=== PATIENT | female | born 1950 | race Caucasian/White ===

== ENCOUNTER → 2023-04-13 06:37 | Outpatient (REF) | payer MEDICARE, OTHER, SELFPAY | LOC: MRI 06:37 | PROVIDERS: ATTENDING PHYSICIAN Internal Medicine | DX: M25.552 Pain in left hip (principal) | CPT/HCPCS: 73721 ==

== ENCOUNTER → 2023-04-28 13:18 | Outpatient (REF) | payer MEDICARE, OTHER, SELFPAY | LOC: RCS 13:18 | PROVIDERS: ATTENDING PHYSICIAN Internal Medicine Cardiovascular Disease; FAMILY PHYSICIAN Internal Medicine | DX: R00.2 Palpitations (principal); Z82.49 Family history of ischemic heart disease and other diseases of the circulatory system; R03.0 Elevated blood-pressure reading, without diagnosis of hypertension; I35.1 Nonrheumatic aortic (valve) insufficiency; R07.89 Other chest pain | CPT/HCPCS: 93017 ==

== ENCOUNTER → 2023-05-31 13:17 | Outpatient (REF) | payer MEDICARE, OTHER, SELFPAY | LOC: MRI 3T 13:17 | PROVIDERS: ATTENDING PHYSICIAN Student in an Organized Health Care Education/Training Program; FAMILY PHYSICIAN Internal Medicine | DX: M54.6 Pain in thoracic spine (principal); M54.50 Low back pain, unspecified | CPT/HCPCS: 72148 ==

== ENCOUNTER 2023-10-06 22:45 | Emergency (ER) | payer MEDICARE, OTHER, SELFPAY ==
[2023-10-06 22:54] VITALS: BP 126/68
[2023-10-06 23:34] VITALS: BP 129/58
[2023-10-06 23:35] VITALS: BMI 32.7
--- NOTE | 2023-10-06 23:47 | ED.GENMED ---
History of Present Illness
General
Chief Complaint: Cardiac Symptoms
Source: patient and spouse
Exam Limitations: none
Time Seen by Provider: 10/06/23 23:20
History of Present Illness
History of Present Illness:
This is a 73 year old female that comes in with c/o chest pain. States that she has very bad panic attacks. States that she gets chest pain with this and then she started to Hyperventilate. States that she does not get them often but this was
similar to one she had a year ago. States that she took 2 Xanax 5mg after this started. States that they started to work when she got here. States that she is feeling fine know. States that she gets very sweaty with her Panic attacks. States that
she has chest pain, SOB. Denies any fever, chills, abd pain, nausea, vomiting, diarrhea, headache, dizziness, urinary burning.
Past History
Past History
ED Past Medical History: HTN and Psychiatric (Anxiety, Depression, Panic attacks); Negative Asthma, Hypercholesterolemia or NIDDM
ED Past Surgical History: None
Social History
Tobacco: Former smoker
Alcohol: None
Personal:
Living: with family
Family History
Family History: Diabetes
Review of Systems
Review of Systems
All Other Systems: ROS reviewed and negative except as documented in HPI and ROS
Constitutional: Reports no symptoms; Denies fever or chills
EENT: Reports no symptoms
Respiratory: Reports trouble breathing; Denies cough
Cardiac: Reports chest pain
ABD/GI: Reports no symptoms; Denies abdominal pain, nausea, vomiting or diarrhea
: Reports no symptoms; Denies dysuria, frequency or urgency
Musculoskeletal: Reports no symptoms
Skin: Reports no symptoms
Neurological: Reports no symptoms; Denies dizzy or headache
Psychiatric: Reports no symptoms
Phy Exam
General Physical Exam
General Presentation: well appearing and no apparent distress
General age: appears stated age
General Skin: warm and dry
General Habitus: elderly
General Mental: alert
General Hydration: appears well hydrated
ENT Exam
ENT Exam: TM's normal, pharynx normal and neck supple
Eye Exam
Eye Exam: EOMI
Cardiovascular Exam
Cardiovascular Exam: regular rate/rhythm, no edema, no murmur and normal peripheral pulses
Pulmonary Exam
Pulmonary Exam: lungs clear, no respiratory distress, no rales, chest non tender, no crackles, no rhonchi, no wheezing and no cough
Gastrointestinal Exam
Gastrointestinal Exam: normal bowel sounds, non tender, soft, no organomegaly, no pulsatile mass and non distended
Musculoskeletal Exam
Musculoskeletal Exam: full ROM and no edema
Skin Exam
Skin Exam: normal color, warm/dry, no rash and no petechia
Psychiatric Exam
Psychiatric Exam: normal mood/affect
Course
Orders/Labs/Results
Orders:
Orders
10/06/23 22:46
Electrocardiogram (*1) Urgent
Reason for Study: Chest Pain
EKG- Treatment ONCE
10/06/23 23:30
CMP [Comprehensive Metabolic Panel] Urgent
Complete Blood Count/With Diff Urgent
Troponin I Urgent
Abnormal Lab Results
10/06/23
23:30
MPV 10.8 H fL
(7.4-10.4)
Absolute Monos (auto) 0.7 H 10^3/uL
(0.1-0.6)
Lymphocytes % 17.7 L %
(20.5-51.1)
Chloride 108 H mmol/L
(98-107)
BUN 24 H mg/dl
(7-17)
Creatinine 1.1 H mg/dL
(0.6-1.0)
Glucose 139 H mg/dl
(70-99)
AST 67 H U/L
(14-36)
ALT 59 H U/L
(0-35)
Total Protein 6.0 L g/dl
(6.3-8.2)
10/06/23 23:30
10/06/23 23:30
Dehydration. Glucose nonfasting. AST/ALT mildly elevated. Total protein slightly low. Troponin <0.012
Vital Signs
Initial and Last Documented VS:
Initial Vital Signs
Temp Pulse Resp BP Pulse Ox
97.8 F 64 24 126/68 100
10/06/23 22:54 10/06/23 22:54 10/06/23 22:54 10/06/23 22:54 10/06/23 22:54
Last Documented Vital Signs
Temp Pulse Resp BP Pulse Ox
97.8 F 64 24 129/58 97
10/06/23 22:54 10/06/23 22:54 10/06/23 22:54 10/06/23 23:34 10/06/23 23:34
MDM/Problems Addressed
Differential Diagnosis Includes:
Panic attack, Anxiety
MDM/Problems Addressed:
This is a 73 year old female with a history of panic attacks and anxiety. States that she started with a bad panic attack tonight. States that she gets really bad chest pain, SOB and sweats. States that she took 2 Xanax after this attack started and
after she got here they started to work. States that she is ready to go home.
Will get labs. Explained to patient that normally 2 Troponin's are drawn 3 hours apart. Patient states that she does not want the second one as she is feeling better and ready to go home. Will get labs and discharge patient home.
Back into see patient. Explained that her blood work does show dehydration. Encouraged patient to increase her water intake. Troponin was normal. Patient to follow up with the family doctor. Return with any concerns.
Chronic conditions affecting care:
Panic attacks, Anxiety
Acute Exacerbation and/or Progression of Chronic Illness:
Panic attack, Anxiety
*Pulse Oximetry
Patient hypoxic: no
*EKG
Interpreted by ED Provider?: Yes
Heart Rate: 64
Rate: normal
Rhythm: sinus
Benkelman: left axis deviation
Interval: normal interval
QRS Pattern: normal QRS
Ischemia: no ischemia
*Business Development Intern Interpretation
Rate: Business Development Intern- N/A
*Critical Care Note
Total Time (30-74mins, 75-104mins- exclusive of procedures): Not Applicable
ED Attending Note
-
Portions of this chart may have been created with voice recognition software.� Occasional wrong word or��sound alike� substitutions may have occurred due to the inherent limitations of voice recognition software.
Discharge Plan
Departure
Patient Disposition: Home (Routine Discharge)
Date of Disposition: 10/07/23
Time of Disposition: 00:27
Patient with high blood pressure during this ER visit?: No
Condition: Good
Covid-19: Not Applicable
Discharge Problem:
Panic attack
Instructions: Panic Disorder (DC)
Prescriptions:
No Action
nitrofurantoin monohyd/m-cryst 100 MG capsule
100 mg PO BID Qty: 14 0RF
Referrals:
Laurel Morales MD [Family Provider] - Call in 1-3 days for appt
Activity Restrictions/Additional Instructions:
As discussed, your blood work shows that you are dehydrated. Please increase your water intake to 8-8oz glasses daily. Your Troponin is normal. Please follow up with the family doctor for recheck. IF YOU HAVE ANY FURTHER CHEST PAIN, SHORTNESS OF
BREATH OR YOU HAVE ANY OTHER CONCERNS PLEASE RETURN TO THE EMERGENCY ROOM
Interventions
Interventions:
*Risk Screen - Suicide Last Done: 10/06/23 22:54
*Neglect/Abuse Screening Last Done: 10/06/23 22:54
ED- Fall Risk Assessment Last Done: 10/06/23 23:37
ED- Pulmonary Assessment Last Done: 10/06/23 23:37
ED-Psychological Assessment Last Done: 10/06/23 23:37
ED- Cardiac Assessment Last Done: 10/06/23 23:37
Discharge Date and Time
Print Language: PERSIAN
[2023-10-06 23:52] LABS: % Eosinophils 2.5 % (0-6); % Immature Granulocytes 0.4 % (0-0.5); % Lymphocytes 17.7 % (20.5-51.1); % Monocytes 9.2 % (1.7-9.3); % Neutrophils 69.2 % (42.2-75.2); Absolute Basophils 0.1 10^3/uL (0-0.2); Absolute Eosinophils 0.2 10^3/uL (0-0.7); Absolute Lymphocytes 1.4 10^3/uL (1.2-3.4); Absolute Monocytes 0.7 10^3/uL (0.1-0.6); Absolute Neutrophils 5.5 10^3/uL (1.4-6.5); Hemoglobin 12.8 g/dL (12.0-16.0); Mean Corp Hgb Conc. 34.6 g/dL (33.0-37.0); Mean Corpuscular Hgb 30.2 pg (27.0-31.0); Mean Corpuscular Volume 87.3 fL (81.0-99.0); Mean Platelet Volume 10.8 fL (7.4-10.4); Nucleated Red Blood Cells % 0 %; Platelet Count 246 10^3/uL (130-400); Red Blood Cell Count 4.24 10^6/uL (4.20-5.40); Red Cell Dist. Width 12.3 % (11.5-14.5); White Blood Cell Count 7.9 10^3/uL (4.8-10.8)
[2023-10-07] VITALS: BP 116/72
[2023-10-07 00:12] LABS: ALT (SGPT) 59 U/L (0-35); AST (SGOT) 67 U/L (14-36); Albumin 3.9 g/dl (3.5-5.0); Alkaline Phosphatase 50 U/L (38-126); Blood Urea Nitrogen 24 mg/dl (7-17); Calcium 9.3 mg/dl (8.4-10.2); Carbon Dioxide 25 mmol/L (22-30); Chloride 108 mmol/L (98-107); Estimated Creatinine Clearance 46 ml/min; Glucose 139 mg/dl (70-99); Potassium 3.9 mmol/L (3.5-5.1); Sodium 140 mmol/L (135-145); Total Bilirubin 0.5 mg/dl (0.2-1.3); eGFR 53.39
[2023-10-07 00:25] LABS: Troponin I < 0.012 ng/ml
--- NOTE | 2023-10-07 00:37 | EDRN ---
Patient remains feeling okay, DEE DEE Lyn spoke with patient and patient to be discharged home.
== END 2023-10-07 00:39 | disposition home or self-care (01) ==
LOC: EMR 22:45
PROVIDERS: Emergency Medicine; EMERGENCY PHYSICIAN Emergency Medicine; FAMILY PHYSICIAN Internal Medicine
DX: F41.0 Panic disorder [episodic paroxysmal anxiety] (principal); R07.9 Chest pain, unspecified; R06.02 Shortness of breath; E86.0 Dehydration; I10 Essential (primary) hypertension; F41.9 Anxiety disorder, unspecified; F32.A Depression, unspecified; Z87.891 Personal history of nicotine dependence
CPT/HCPCS: 99283; 80053; 84484; 85025; 93005

== ENCOUNTER → 2024-01-13 09:58 | Outpatient (REF) | payer MEDICARE, OTHER, SELFPAY | LOC: PAVMRI 09:58 | PROVIDERS: ATTENDING PHYSICIAN Internal Medicine | DX: M48.061 Spinal stenosis, lumbar region without neurogenic claudication (principal) | CPT/HCPCS: 72148 ==

== ENCOUNTER → 2024-01-22 09:04 | Outpatient (REF) | payer MEDICARE, OTHER, SELFPAY | LOC: WDC 09:04 | PROVIDERS: ATTENDING PHYSICIAN Internal Medicine | DX: Z12.31 Encounter for screening mammogram for malignant neoplasm of breast (principal) | CPT/HCPCS: 77063; 77067 ==

== ENCOUNTER → 2024-10-27 10:23 | Outpatient (REF) | payer MEDICARE, OTHER, SELFPAY | LOC: RAD 10:23 | PROVIDERS: ATTENDING PHYSICIAN Hospitalist | DX: M81.0 Age-related osteoporosis without current pathological fracture (principal) | CPT/HCPCS: 77080 ==

== ENCOUNTER → 2024-11-04 16:24 | Outpatient (REF) | payer MEDICARE, OTHER, SELFPAY | LOC: RAD 16:24 | PROVIDERS: ATTENDING PHYSICIAN Nurse Practitioner | DX: R07.81 Pleurodynia (principal) | CPT/HCPCS: 71101 ==

== ENCOUNTER → 2025-02-02 08:03 | Outpatient (REF) | payer MEDICARE, OTHER, SELFPAY | LOC: WDC 08:03 | PROVIDERS: ATTENDING PHYSICIAN Hospitalist | DX: Z12.31 Encounter for screening mammogram for malignant neoplasm of breast (principal) | CPT/HCPCS: 77063; 77067 ==

== ENCOUNTER 2025-02-09 19:04 | Emergency (ER) | payer MEDICARE, OTHER, SELFPAY ==
[2025-02-09 19:07] VITALS: BP 97/64
[2025-02-09 19:49] LABS: Hematocrit 39.2 % (37.0-47.0); Hemoglobin 13.6 g/dL (12.0-16.0); Mean Corp Hgb Conc. 34.7 g/dL (33.0-37.0); Mean Corpuscular Volume 88.7 fL (81.0-99.0); Nucleated Red Blood Cells % 0 %; Platelet Count 259 10^3/uL (130-400); Red Cell Dist. Width 12.0 % (11.5-14.5)
[2025-02-09 20:02] LABS: ALT (SGPT) 165 U/L (0-35); AST (SGOT) 311 U/L (14-36); Albumin 4.3 g/dl (3.5-5.0); Alkaline Phosphatase 85 U/L (38-126); Blood Urea Nitrogen 15 mg/dl (7-17); Calcium 9.5 mg/dl (8.4-10.2); Carbon Dioxide 29 mmol/L (22-30); Chloride 100 mmol/L (98-107); Glucose 106 mg/dl (70-99); Potassium 4.4 mmol/L (3.5-5.1); Sodium 137 mmol/L (135-145); Total Protein 6.6 g/dl (6.3-8.2); eGFR > 60.00
[2025-02-09 20:12] LABS: Troponin I < 0.012 ng/ml
[2025-02-09 21:04] VITALS: BP 124/70
--- NOTE | 2025-02-09 21:06 | ED.GENMED ---
History of Present Illness
General
Chief Complaint: Chest Pain
Time Seen by Provider: 02/09/25 21:05
History of Present Illness
History of Present Illness:
FOCUSED PAST MEDICAL HISTORY
- Anxiety
REVIEW OF OLD RECORDS
- The patient was diagnosed with a panic attack in October 2023 through visit in the ER
Note:
CHIEF COMPLAINT(S)
Chest discomfort.
HISTORY OF PRESENT ILLNESS
The patient is a 74-year-old female presenting with chest discomfort that began this evening at approximately 6:45 PM. She describes the discomfort as a tightness that extends across her chest. The patient denies having any known coronary artery
disease and she follows up regularly with a epoxy coatings installer. She has not had any abnormal stress tests nor undergone cardiac catheterization but does report having echocardiograms in the past. The patient initially felt short of breath earlier but is
not currently experiencing this symptom. She has taken Xanax today and believes the chest discomfort may be related to anxiety.
PHYSICAL EXAM
General: Alert, no acute distress.
Skin: Warm, dry.
Head: Normocephalic, atraumatic.
Neck: Supple, trachea midline.
Eye, Ears, Nose, Mouth, and Throat: Oral mucosa moist.
Cardiovascular: Normal peripheral perfusion, No edema.
Respiratory: Respirations are non-labored.
Gastrointestinal: Abdomen nondistended.
Back: Normal range of motion, Normal alignment.
Musculoskeletal: Normal range of motion, normal strength.
Neurological: Alert and oriented to person, place, time, and situation, No focal neurological deficit observed.
Psychiatric: Cooperative, appropriate mood & affect. Currently does not appear anxious
PLAN
Await results of the three-hour troponin test. Monitor for improvement or worsening of chest discomfort and related symptoms.
DIFFERENTIAL DIAGNOSIS
The Differential Diagnosis includes, in no particular order and is not limited to:
1. Anxiety-related chest pain
2. Angina pectoris
3. Myocardial infarction
4. Gastroesophageal reflux disease
5. Musculoskeletal chest pain
6. Pulmonary embolism
7. Costochondritis
8. Pericarditis
9. Pneumonia
10. Aortic dissection
EKG
- EKG shows sinus [address] abnormality
LABS
- Transaminases are elevated with normal total bili, initial troponin less than 0.012
UPDATE
-SUMMARY OF ENCOUNTER
The patient is a 74-year-old female who presented to the emergency department with chest discomfort described as tightness across the chest. She has no known coronary artery disease and follows regularly with a epoxy coatings installer. Previously, she had
echocardiograms but no abnormal stress tests or cardiac catheterization. The patient experiences anxiety and associates her chest discomfort with anxiety, particularly after being weaned off clonazepam, which she had been taking for 10 years.
Currently, she uses alprazolam (brand: Xanax) as needed for panic attacks. Despite taking alprazolam, she still experienced chest discomfort. Physical examination revealed no acute distress, normal cardiovascular and respiratory findings, and
improved symptoms over visit duration. Initial cardiac tests, including EKG and laboratory blood tests, were normal. A repeat troponin test was pending results at the time of documentation. Based on her history and improvement of symptoms, her
discomfort appears to be anxiety-related rather than cardiac.
DISPOSITION
Discharge home if repeat cardiac blood test (troponin) is normal.
PLAN
Await results of the repeat cardiac blood test. If normal, discharge the patient with reassurance. Recommend follow-up with a primary care physician or epoxy coatings installer and consider behavioral health support for anxiety management.
PATIENT EDUCATION AND COUNSELING
The patient was counseled on the association between anxiety and chest discomfort. She was advised that benzodiazepines should be used sparingly and intermittently. Consideration of therapies for anxiety management beyond medication, such as
cognitive-behavioral therapy, was discussed.
FOLLOW-UP INSTRUCTIONS
The patient is advised to follow up with her primary care physician for anxiety and medication management. Additional guidance to consider an outpatient evaluation by a psychologist or psychiatrist for behavioral health support was provided.
MEDICATION RECONCILIATION
The patient reported using clonazepam (0.5 mg) in the past but is currently using alprazolam (0.25 mg, taken two tablets as needed) for anxiety. No new prescriptions were given during this visit.
MEDICAL DECISION MAKING
-Complexity of Data Reviewed: Chronic conditions affecting care include a history of anxiety and panic attacks. Differential diagnoses considered included anxiety-related chest pain, angina pectoris, myocardial infarction, gastroesophageal reflux
disease, musculoskeletal chest pain, pulmonary embolism, costochondritis, pericarditis, pneumonia, and aortic dissection.
-Data:
Category 1
The patient�s EKG and initial cardiac blood tests were reviewed and found to be normal. Repeat troponin test was pending. Review of historical information regarding prior similar episodes was conducted.
-Risk:
Consideration of Admission/Observation: Escalation of care including admission/observation was considered given the complexity and risk of the patients presenting complaint, exam findings, and/or their underlying comorbidities. However, ultimately I
feel the patient is safe for outpatient management with close follow-up. Reasoning: Work-up reassuring, does not reveal any acute life/organ threatening processes, patients symptoms well controlled upon reevaluation, reexamination is reassuring,
vitals are stable, patient agreeable with discharge, reliable for follow-up.
DIAGNOSIS
Acute anxiety attack
UPDATE
- 2 troponins unremarkable
- EKG unremarkable
- She is certain that her symptoms are related to acute anxiety as she has had similar episodes in the past
- She states she has seen cardiology as an outpatient with unremarkable workups
- She has appeared very comfortable throughout her stay in the ER
Past History
Past History
ED Past Medical History: HTN and Psychiatric (Anxiety, Depression, Panic attacks); Negative Asthma, Hypercholesterolemia or NIDDM
ED Past Surgical History: None
Social History
Tobacco: Former smoker
Alcohol: None
Personal:
Living: with family
Family History
Family History: Diabetes
Phy Exam
Physical Exam
Physical Exam:
See HPI
Scores
Heart Score for Chest Pain Patients
STEMI patient?: Not applicable
Course
Orders/Labs/Results
Orders:
Orders
02/09/25 19:05
Electrocardiogram (*1) Urgent
Reason for Study: Chest Pain
EKG- Treatment ONCE
02/09/25 19:26
Complete Blood Count/With Diff Urgent
Comprehensive Metabolic Panel Urgent
Troponin I Urgent
02/09/25 21:09
EKG- Treatment ONCE
02/09/25 22:02
Troponin I Urgent
02/09/25 22:05
Electrocardiogram (*1) Urgent
Reason for Study: Hypertension, Benign
Abnormal Lab Results
02/09/25
19:26
WBC 4.2 L 10^3/uL
(4.8-10.8)
MPV 10.6 H fL
(7.4-10.4)
Absolute Lymphs (auto) 0.9 L 10^3/uL
(1.2-3.4)
Monocytes % 11.1 H %
(1.7-9.3)
Glucose 106 H mg/dl
(70-99)
AST 311 H U/L
(14-36)
ALT 165 H U/L
(0-35)
02/09/25 19:26
02/09/25 19:26
Vital Signs
Initial and Last Documented VS:
Initial Vital Signs
Temp Pulse Resp BP Pulse Ox
36.3 C 70 22 97/64 100
02/09/25 19:07 02/09/25 19:07 02/09/25 19:07 02/09/25 19:07 02/09/25 19:07
Last Documented Vital Signs
Temp Pulse Resp BP Pulse Ox
36.3 C 60 15 105/66 97
02/09/25 19:07 02/09/25 22:00 02/09/25 22:00 02/09/25 21:57 02/09/25 21:57
*Pulse Oximetry
SaO2: 100
Oxygen Mode of Delivery: Room air
Patient hypoxic: no
*Critical Care Note
Total Time (30-74mins, 75-104mins- exclusive of procedures): Not Applicable
ED Attending Note
-
Portions of this chart may have been created with voice recognition software.� Occasional wrong word or��sound alike� substitutions may have occurred due to the inherent limitations of voice recognition software.
Discharge Plan
Departure
Patient Disposition: Home (Routine Discharge)
Date of Disposition: 02/09/25
Time of Disposition: 22:48
Patient with high blood pressure during this ER visit?: Yes
Discharge Problem:
Anxiety attack
Instructions: Anxiety in adults - ED (DC)
Prescriptions:
No Action
nitrofurantoin monohyd/m-cryst 100 MG capsule
100 mg PO BID Qty: 14 0RF
Referrals:
Yahaira Downs MD [Family Provider, Internal Medicine]
Activity Restrictions/Additional Instructions:
Acute transaminases are elevated with an AST of 311 and an ALT of 165. However the other liver numbers are normal including her total bilirubin and alkaline phosphatase. Cardiac blood work shows no sign of heart attack. Follow-up with your
primary care doctor.
Interventions
Interventions:
*Risk Screen - Suicide Last Done: 02/09/25 19:07
*General Assessment Last Done: 02/09/25 21:12
*Neglect/Abuse Screening Last Done: 02/09/25 19:07
*ED COVID-19 Vaccine History Last Done: 02/09/25 21:05
*ED Influenza Vaccine History Last Done: 02/09/25 21:05
[facility] Fall Risk Assessment Tool Last Done: 02/09/25 21:05
*Nursing Disposition Last Done: 02/09/25 22:56
ED- Cardiac Assessment Last Done: 02/09/25 21:06
Discharge Date and Time
Discharge Date/Time: 02/09/25 22:57
Print Language: URDU
[2025-02-09 21:07] VITALS: BMI 25.4
[2025-02-09 21:57] VITALS: BP 105/66
[2025-02-09 22:50] LABS: Troponin I < 0.012 ng/ml
== END 2025-02-09 22:57 | disposition home or self-care (01) ==
LOC: EMR 19:04
PROVIDERS: Student in an Organized Health Care Education/Training Program; EMERGENCY PHYSICIAN Emergency Medicine; FAMILY PHYSICIAN Hospitalist
DX: F41.0 Panic disorder [episodic paroxysmal anxiety] (principal); R07.89 Other chest pain; I10 Essential (primary) hypertension; Z87.891 Personal history of nicotine dependence
CPT/HCPCS: 99284; 80053; 84484; 85025; 93005

== ENCOUNTER 2025-02-13 13:34 | Emergency (ER) | payer MEDICARE, OTHER, SELFPAY ==
[2025-02-13 13:35] VITALS: BP 148/99
[2025-02-13 14:57] VITALS: BP 142/66
[2025-02-13 15:11] LABS: Hematocrit 39.0 % (37.0-47.0); Hemoglobin 13.6 g/dL (12.0-16.0); Mean Corp Hgb Conc. 34.9 g/dL (33.0-37.0); Mean Corpuscular Volume 88.0 fL (81.0-99.0); Nucleated Red Blood Cells % 0 %; Platelet Count 246 10^3/uL (130-400); Red Cell Dist. Width 12.0 % (11.5-14.5)
[2025-02-13] MEDS: LIDOCAINE 4% PATCH 1 PATCH TOPICAL (15:37)
[2025-02-13] MEDS: TORADOL 15 MG IV (15:37)
[2025-02-13 15:40] LABS: ALT (SGPT) 142 U/L (0-35); AST (SGOT) 38 U/L (14-36); Albumin 4.3 g/dl (3.5-5.0); Alkaline Phosphatase 78 U/L (38-126); Blood Urea Nitrogen 12 mg/dl (7-17); Calcium 9.4 mg/dl (8.4-10.2); Carbon Dioxide 29 mmol/L (22-30); Chloride 102 mmol/L (98-107); Glucose 98 mg/dl (70-99); Potassium 4.0 mmol/L (3.5-5.1); Sodium 136 mmol/L (135-145); Total Protein 6.7 g/dl (6.3-8.2); eGFR > 60.00
[2025-02-13 15:43] LABS: Troponin I < 0.012 ng/ml
--- NOTE | 2025-02-13 15:43 | ED.GENMED ---
History of Present Illness
General
Chief Complaint: Breathing Problem
Time Seen by Provider: 02/13/25 14:09
History of Present Illness
History of Present Illness:
74-year-old woman with history of anxiety/panic attacks presenting to the emergency department with chest pain. Patient states that she been having multiple episodes of panic attacks. She takes Xanax to help. She also takes Lexapro and BuSpar.
Her primary care manages her panic attacks. She states that today she developed a panic attack while she was sitting. Starts in her back and radiates up to her chest. She has a hard time breathing. The hard time breathing has subsided though now
she has some residual back pain and chest pain. She states that her massages it which does make it feel better. does note that she tenses during the actual panic attack. Her primary care doctor told her to come in for further
evaluation given the ongoing pain. No nausea vomiting. No diaphoresis. No heart problems that patient is aware of. Does not smoke. Has never seen cardiology. They had a panic attack started at 3 in the morning. She also notes that she did
increase her Pilates to 5 days a week. She is unsure if she pulled a muscle during Pilates.
Past History
Past History
ED Past Medical History: HTN and Psychiatric (Anxiety, Depression, Panic attacks); Negative Asthma, Hypercholesterolemia or NIDDM
ED Past Surgical History: None
Social History
Tobacco: Former smoker
Alcohol: None
Personal:
Living: with family
Family History
Family History: Diabetes
Phy Exam
Physical Exam
Physical Exam:
GENERAL: in no acute distress
HEENT: normocephalic, extraocular movements intact, moist oral mucosa
NECK: normal inspection
Chest: Tenderness palpation to the inferior sternum, tenderness palpation diffusely just below scapula on the right side, no rash
RESPIRATORY: no respiratory distress, clear to auscultation bilaterally
CARDIOVASCULAR: regular rate and rhythm, 2+ distal pulses
ABDOMEN/: soft, non-distended, non-tender to palpation, no rebound or guarding
EXTREMITIES: non-tender, no edema/swelling
NEUROLOGIC: awake and alert, moves all extremities
SKIN: warm
Scores
Heart Failure Risk
Heart Failure Risk Score: Not Applicable
Course
Orders/Labs/Results
Orders:
Orders
02/13/25 13:38
Electrocardiogram (*1) Urgent
Reason for Study: Chest Pain
EKG- Treatment ONCE
02/13/25 14:59
Complete Blood Count/With Diff Urgent
Comprehensive Metabolic Panel Urgent
Troponin I Urgent
02/13/25 15:33
Ketorolac [Toradol] 15 mg IV NOW STA
02/13/25 15:34
CR Chest - 2 Views Urgent
Comment:
Reason For Exam: chest pain
02/13/25 15:45
Lidocaine [Lidocaine 4% Patch] 1 patch TOPICAL DAILY
Apply Lidocaine patch(s) to:: back
02/13/25 17:21
Diphenhydramine [Benadryl] 12.5 mg IV NOW STA
Metoclopramide [Reglan] 10 mg IV NOW STA
Abnormal Lab Results
02/13/25
14:59
Absolute Lymphs (auto) 0.6 L 10^3/uL
(1.2-3.4)
Neutrophils % 83.6 H %
(42.2-75.2)
Lymphocytes % 8.2 L %
(20.5-51.1)
AST 38 H U/L
(14-36)
ALT 142 H U/L
(0-35)
02/13/25 14:59
02/13/25 14:59
Vital Signs
Initial and Last Documented VS:
Initial Vital Signs
Temp Pulse Resp BP Pulse Ox
98 F 78 16 148/99 99
02/13/25 13:35 02/13/25 13:35 02/13/25 13:35 02/13/25 13:35 02/13/25 13:35
Last Documented Vital Signs
Temp Pulse Resp BP Pulse Ox
98 F 58 19 123/66 95
02/13/25 13:35 02/13/25 16:15 02/13/25 16:15 02/13/25 16:00 02/13/25 16:15
MDM/Problems Addressed
Differential Diagnosis Includes:
Patient is a 74 open with history of anxiety panic attacks presenting to the emergency department with ongoing chest and back pain after panic attack this morning. On arrival vitals are unremarkable and exam does show reproducible tenderness to the
sternum and to the right mid back just below the scapula. Differential consists of atypical ACS versus muscular pain versus reflux versus anxiety. Considered PE though unlikely given that there is no pleuritic pain and no other risk factors as
well as vital signs are notable for regular rate normal oxygen normal blood pressure. Will check blood work EKG troponin. Will pain control. Will obtain chest x-ray.
*Pulse Oximetry
SaO2: 100
Oxygen Mode of Delivery: Room air
Patient hypoxic: no
*Critical Care Note
Total Time (30-74mins, 75-104mins- exclusive of procedures): Not Applicable
Update Note
Update Note:
Blood work reassuring. Chronic elevation with ALT secondary to medication patient was on previous EKG per my interpretation no ST changes.
On reevaluation pain has improved after Toradol. Patient does complain of a mild headache. It is similar to her prior headaches. She does state that she has not eaten all day. After decision making we will give her Reglan and Benadryl. Patient
is requesting discharge after receiving medications as daughter will be driving her home
ED Attending Note
-
Portions of this chart may have been created with voice recognition software.� Occasional wrong word or��sound alike� substitutions may have occurred due to the inherent limitations of voice recognition software.
Discharge Plan
Departure
Patient Disposition: Home (Routine Discharge)
Date of Disposition: 02/13/25
Time of Disposition: 17:30
Patient with high blood pressure during this ER visit?: Yes
Discharge Problem:
Chest pain
Instructions: Chest Pain (DC)
Prescriptions:
No Action
nitrofurantoin monohyd/m-cryst 100 MG capsule
100 mg PO BID Qty: 14 0RF
Referrals:
Yahaira Downs MD [Family Provider, Internal Medicine]
Activity Restrictions/Additional Instructions:
Thank You for choosing [facility].
It was a pleasure meeting you and taking part in your care.
You were seen in the Emergency Department today for chest pain and back pain. While you were here we performed blood work, which was reassuring.
We would like for you to follow up with your primary care physician for further evaluation. If you experience fever, worsening of your symptoms, or develop any other new or concerning symptoms, please return to the Emergency Department immediately.
Please see the attached sheet for additional information.
Interventions
Interventions:
*Risk Screen - Suicide Last Done: 02/13/25 14:54
*General Assessment Last Done: 02/13/25 14:54
*Neglect/Abuse Screening Last Done: 02/13/25 14:54
*ED COVID-19 Vaccine History Last Done: 02/13/25 14:54
*ED Influenza Vaccine History Last Done: 02/13/25 14:54
[facility] Risk Assessment Tool Last Done: 02/13/25 14:14
ED- Cardiac Assessment Last Done: 02/13/25 14:54
ED- Pulmonary Assessment Last Done: 02/13/25 14:54
Discharge Date and Time
Print Language: [id number]
[2025-02-13 16:00] VITALS: BP 123/66
[2025-02-13] MEDS: BENADRYL 12.5 MG IV (17:27)
[2025-02-13] MEDS: REGLAN 10 MG IV (17:28)
== END 2025-02-13 18:41 | disposition home or self-care (01) ==
LOC: EMR 13:34
PROVIDERS: EMERGENCY PHYSICIAN Student in an Organized Health Care Education/Training Program; FAMILY PHYSICIAN Hospitalist
DX: R07.89 Other chest pain (principal); M54.9 Dorsalgia, unspecified; F41.0 Panic disorder [episodic paroxysmal anxiety]; I10 Essential (primary) hypertension; Z87.891 Personal history of nicotine dependence; Z79.899 Other long term (current) drug therapy
CPT/HCPCS: 96374; 96375; 99285; 71046; 80053; 84484; 85025; 93005